=== PATIENT | female | born 1995 | race Caucasian/White ===

== ENCOUNTER 2020-04-24 08:53 | Inpatient (IN) | payer OTHER, SELFPAY ==
[~2020-04-24] VITALS: Ht 162.6 cm; Wt 118.4 kg
[2020-04-24] MEDS ORDERED: AMPICILLIN SODIUM 2 GM in NS 100 ML IV ONE (09:45)
[2020-04-24] MEDS ORDERED: TERBUTALINE SULFATE 1 MG/ML VIAL SUBCUT ONE (09:45)
[2020-04-24] MEDS ORDERED: LR 1,000 ML IV ONE (09:45)
[2020-04-24 10:07] LABS: BASOPHILS % (AUTO) 0.2 % (0.0-2.0); EOSINOPHILS % (AUTO) 0.3 % (0.0-4.0); HEMATOCRIT 36.3 % (36-48); HEMOGLOBIN 12.4 g/dL (12.0-16.0); LYMPHOCYTES # (AUTO) 1.6 K/uL (1.0-5.5); LYMPHOCYTES % (AUTO) 16.4 % (20.5-51.5); MEAN CORPUSCULAR HEMOGLOBIN 32 pg (27-31); MEAN CORPUSCULAR HGB CONC 34 % (32-36); MEAN CORPUSCULAR VOLUME 93 fL (79.0-98.0); MONOCYTES # (AUTO) 0.4 K/uL (0.0-1.0); NEUTROPHILS # (AUTO) 7.6 K/uL (1.8-7.7); NEUTROPHILS % (AUTO) 79.1 % (40.0-70.0); PLATELET COUNT (AUTO) 263 K/uL (130-430); RED BLOOD CELL COUNT(AUTO) 3.91 MIL/uL (4.2-6.2); RED CELL DISTRIBUTION WIDTH 12.9 % (9.0-15.0); WHITE BLOOD COUNT (AUTO) 9.6 K/uL (4.8-10.8)
[2020-04-24] MEDS: LR 1,000 ML IV SCH ×2 (11:05→20:00)
[2020-04-24] MEDS: OXYTOCIN/0.9 % SODIUM CHLORIDE 1,000 ML IV SCH (11:27)
[2020-04-24] MEDS ORDERED: BETAMET ACET/BETAMET NA PH 30 MG/5 ML VIAL IM ONE ×2 (12:45→21:45)
[2020-04-24 13:09] VITALS: BP_SYST 114
[2020-04-24] MEDS: AMPICILLIN SODIUM 1 GM in NS 50 ML IV SCH ×4 (15:30→23:29)
[2020-04-24] MEDS ORDERED: AZITHROMYCIN 500 MG in NS 250 ML IV SCH ×2 (19:30→21:00)
[2020-04-25] MEDS ORDERED: BETAMET ACET/BETAMET NA PH 30 MG/5 ML VIAL IM ONE (00:01)
[2020-04-25] MEDS: AMPICILLIN SODIUM 1 GM in NS 50 ML IV SCH ×3 (03:31→11:43)
[2020-04-25] MEDS: LR 1,000 ML IV SCH (07:49)
[2020-04-25] MEDS: OXYTOCIN/0.9 % SODIUM CHLORIDE 1,000 ML IV SCH (07:53)
[2020-04-25] MEDS: NALBUPHINE HCL 10 MG/ML AMP IVP PRN ×2 (08:27→11:43)
[2020-04-25] MEDS ORDERED: DERMOPLAST SPRAY TP PRN (15:45)
[2020-04-25] MEDS ORDERED: OXYTOCIN/0.9 % SODIUM CHLORIDE 1,000 ML IV ONE (15:45)
[2020-04-25] MEDS ORDERED: METHYLERGONOVINE MALEATE 0.2 MG TABLET PO PRN (15:45)
[2020-04-25] MEDS ORDERED: LANOLIN 7 GM OINT. TP PRN (15:45)
[2020-04-25] MEDS ORDERED: SENNOSIDES/DOCUSATE SODIUM 1 TAB TABLET(SENOKOT-S) PO PRN (15:45)
[2020-04-25] MEDS ORDERED: WITCH HAZEL LEAF 1 MED.PAD MED.PAD TP PRN (15:45)
[2020-04-25] MEDS ORDERED: OXYCODONE/ACETAMINOPHEN 5-325 TABLET PO PRN ×2 (15:45)
[2020-04-25] MEDS: IBUPROFEN 800 MG TABLET PO PRN ×2 (17:36→23:25)
[2020-04-25] MEDS: DOCUSATE SODIUM 100 MG CAPSULE PO PRN (17:36)
[2020-04-26] MEDS: IBUPROFEN 800 MG TABLET PO PRN ×3 (05:25→17:30)
[2020-04-26 07:35] LABS: HEMATOCRIT 31.8 % (36-48); HEMOGLOBIN 10.5 g/dL (12.0-16.0)
[2020-04-26] MEDS: DOCUSATE SODIUM 100 MG CAPSULE PO PRN (12:00)
[2020-04-26 18:28] LABS: FTA-Ab (T PALLIDUM) Non Reactive (Non Reactive)
== END 2020-04-27 15:00 | disposition home or self-care (01) | DRG 560 ==
LOC: SPU 08:53 → OBSVTOIN 08:53
PROVIDERS: ADMIT Obstetrics & Gynecology; ATTEND Obstetrics & Gynecology
PROC: 10E0XZZ Delivery of Products of Conception, External Approach (ICD-10-PCS; principal; 2020-04-24)
DX: O42.913 Preterm premature rupture of membranes, unspecified as to length of time between rupture and onset of labor, third trimester (principal); Z20.822 Contact with and (suspected) exposure to COVID-19; Z3A.35 35 weeks gestation of pregnancy; Z37.0 Single live birth
CPT/HCPCS: 36415; 85018-TC; 85025; 86592; 86780; 86886; 86900; 86901; J0290; J0456; J0702; J2300; J2590; J7050; J7120